=== PATIENT | male | born 1970 | race Caucasian/White ===

== ENCOUNTER 2025-04-15 07:46 | Emergency (ER) | payer OTHER ==
[2025-04-15 07:52] VITALS: BP 116/111; PULSE 93; RESP 18; TEMP 98.2; BMI 28.8
[2025-04-15] MEDS ORDERED: METHOCARBAMOL 500 MG TABLET ONE (08:16)
[2025-04-15] MEDS ORDERED: ACETAMINOPHEN 500 MG TABLET (FP) ONE (08:16)
[2025-04-15] MEDS ORDERED: LIDOCAINE 5% TOPICAL PATCH ONE (08:17)
[2025-04-15] MEDS ORDERED: KETOROLAC TROMETHAMINE 30 MG/1 ML VIAL ONE (08:17)
[2025-04-15] MEDS: ACETAMINOPHEN 500 MG TABLET (FP) PO ONE (08:18)
[2025-04-15] MEDS: KETOROLAC TROMETHAMINE 15 MG/ML VIAL IM ONE (08:20)
[2025-04-15] MEDS: METHOCARBAMOL 750 MG TABLET PO ONE (08:20)
[2025-04-15] MEDS: LIDOCAINE 5% TOPICAL PATCH TP ONE (08:21)
[2025-04-15] MEDS ORDERED: LIDOCAINE PATCH REMOVAL MC ONE (22:00)
== END 2025-04-15 10:18 | disposition home or self-care (01) ==
LOC: FER 07:46
DX: M54.42 Lumbago with sciatica, left side (principal); G89.29 Other chronic pain; R20.0 Anesthesia of skin
CPT/HCPCS: 76775-TC; 81003; 81015; 87086; 99284-25